=== PATIENT | female | born 1965 | race Caucasian/White ===

== ENCOUNTER → 2016-06-09 | Outpatient (CLI) | payer BC | LOC: COL.RAD 13:45 | DX: R31.0 Gross hematuria (principal); R10.32 Left lower quadrant pain; R10.31 Right lower quadrant pain; K76.0 Fatty (change of) liver, not elsewhere classified; Z90.49 Acquired absence of other specified parts of digestive tract; Z90.710 Acquired absence of both cervix and uterus | CPT/HCPCS: Q9967 ==

== ENCOUNTER 2018-07-06 13:53 | Emergency (ER) | payer BC ==
[~2018-07-06] VITALS: Ht 157.5 cm; Wt 86.4 kg
[2018-07-06 14:00] VITALS: TEMP 97.8
[2018-07-06 14:36] LABS: COLLECTION METHOD CLEAN CATCH
[2018-07-06 14:51] LABS: MUCOUS Present /lpf; PH 5 (5-8); SQUAMOUS EPITHELIAL None Seen /hpf; URINE APPEARANCE Clear; URINE BACTERIA None Seen /hpf; URINE BILIRUBIN Negative (NEGATIVE); URINE BLOOD Negative (NEGATIVE); URINE COLOR Yellow; URINE GLUCOSE Negative (NEGATIVE); URINE KETONE Trace (NEGATIVE); URINE LEUKOCYTE ESTERASE Negative (NEGATIVE); URINE NITRATE Negative (NEGATIVE); URINE PROTEIN(semi-quant) Negative (NEGATIVE); URINE RBC 0-2 /hpf; URINE UROBILINOGEN Negative (NEGATIVE)
[2018-07-06 14:57] LABS: BASO # 0.1 (0.0-0.2); BASO % 0.8 % (0.0-2.0); EOS # 0.1 (0.0-0.7); EOS % 0.7 % (0-4.0); GRAN # 5.3 (1.4-6.5); GRAN % 69.6 % (42.2-75.2); HEMATOCRIT 42.9 % (37.0-47.0); LYMPH # 1.8 (1.2-3.4); LYMPH % 23.5 % (20.0-51.0); MEAN CELL VOLUME 88 fl (80.0-100.0); MEAN CORPUSCULAR HEMOGLOBIN 31 pg (27.0-31.0); MEAN CORPUSCULAR HGB CONC 35 g/dl (33.0-37.0); MEAN PLATELET VOLUME 10.2 fl (7.4-10.4); MONO # 0.4 (0.1-0.6); MONO % 5.1 % (1.7-9.3); PLATELET COUNT 177 K/mm3 (130-400); RED BLOOD COUNT 4.88 M/mm3 (4.10-5.30); REDCELL DISTRIBUTION WIDTH-CV 12.9 % (11.5-14.5)
[2018-07-06 15:08] LABS: ALBUMIN 4.5 gm/dL (3.5-5.0); BILIRUBIN,TOTAL 0.8 mg/dL (0.0-1.0); C-REACTIVE PROTEIN 0.8 mg/dL (0.0-0.9); CALCIUM 9.7 mg/dL (8.4-10.2); CREATININE, serum 0.59 mg/dL (0.52-1.25); POTASSIUM 3.7 mmol/L (3.4-5.0); TOTAL PROTEIN 7.9 gm/dL (6.4-8.2)
[2018-07-06] MEDS ORDERED: PROMETHAZINE12.5 M5 PO (16:05)
[2018-07-06] MEDS ORDERED: AMBIEN 10MG10 MG PO (16:12)
[2018-07-06] MEDS ORDERED: XANAX 0.5MG0.5 MG PO (16:12)
[2018-07-06] MEDS ORDERED: IBU800 M1 PO (16:13)
[2018-07-06] MEDS ORDERED: NORFLEX 10100 MG/TAB PO (16:13)
[2018-07-06 16:54] VITALS: BP 139/83; PULSE 64
== END 2018-07-06 16:57 | disposition home or self-care (01) ==
LOC: COL.ER 13:53
PROVIDERS: Physician Assistant
DX: R11.10 Vomiting, unspecified (principal); E86.0 Dehydration; R10.84 Generalized abdominal pain; F41.9 Anxiety disorder, unspecified; Z87.891 Personal history of nicotine dependence; Z90.710 Acquired absence of both cervix and uterus; Z90.49 Acquired absence of other specified parts of digestive tract; Z88.5 Allergy status to narcotic agent
CPT/HCPCS: J2405; J7030

== ENCOUNTER → 2018-12-05 | Outpatient (CLI) | payer BC ==
[~2018-12-05] MED LIST: AMBIEN 10MG10 MG PO; IBU800 M1 PO; NORFLEX 10100 MG/TAB PO; PROMETHAZINE12.5 M5 PO; XANAX 0.5MG0.5 MG PO
== END ==
LOC: COL.RAD 11-28 14:45
DX: M25.571 Pain in right ankle and joints of right foot (principal)

== ENCOUNTER → 2020-06-19 | Outpatient (CLI) | payer BC | LOC: COL.RAD 14:15 | DX: R10.2 Pelvic and perineal pain (principal); Z90.710 Acquired absence of both cervix and uterus; Z90.721 Acquired absence of ovaries, unilateral ==

== ENCOUNTER → 2021-03-19 | Outpatient (CLI) | payer BC | LOC: COL.RAD 08:19 | DX: R10.32 Left lower quadrant pain (principal) | CPT/HCPCS: Q9967 ==

== ENCOUNTER → 2021-03-26 | Outpatient (CLI) | payer BC | LOC: COL.RAD 10:27 | DX: K44.9 Diaphragmatic hernia without obstruction or gangrene (principal); K57.30 Diverticulosis of large intestine without perforation or abscess without bleeding; K76.0 Fatty (change of) liver, not elsewhere classified; Z90.49 Acquired absence of other specified parts of digestive tract | CPT/HCPCS: Q9967 ==

== ENCOUNTER → 2022-09-20 | Outpatient (CLI) | payer BC | LOC: COL.RAD 13:28 | DX: G43.109 Migraine with aura, not intractable, without status migrainosus (principal); S06.9X1S Unspecified intracranial injury with loss of consciousness of 30 minutes or less, sequela; X58.XXXS Exposure to other specified factors, sequela | CPT/HCPCS: A9575 ==